=== PATIENT | male | born 1985 | race Caucasian/White ===

== ENCOUNTER 2021-01-09 10:21 | Emergency (ER) | payer OTHER, SELFPAY ==
[2021-01-09 10:29] VITALS: BP 120/80; PULSE 71; RESP 16; TEMP 36.9; O2SAT 99
--- NOTE | 2021-01-09 11:00 | ED.SKABFB ---
HPI - Skin/Abscess/Foreign Bdy General Chief complaint: Skin/Abscess/Foreign Body Stated complaint: pos ingrown hair Source: patient and RN notes reviewed Limitations: no limitations History of Present Illness HPI narrative: The patient, tattoo professional, presents with skin eruption. Patient states he had MRSA in the past, and he shaves his groin. He now has 1/2-week history of left proximal thigh skin eruption, well lateral to the shaved areas. Complains of mild quarter sized redness without fever, other rash, discharge without abscess/induration-- but there is faint developing redness. Symptoms are mild, unrelieved with squeezing/scratching it. Related Data Allergies Allergy/AdvReac Type Severity Reaction Status Date / Time No Known Allergies Allergy Verified 01/09/21 10:32 Review of Systems Review of Systems: General/Constitutional: No weight loss,fever Eyes: N0: Redness,discharge Ears/Nose/Throat: No: Epistaxis,ear discharge Respiratory: Denies: Hemoptysis Gastrointestinal: No Vomiting, Bleeding-rectal Skin: No Lumps, REPORTS eruption Neurologic: No Focal Weakness,Sz Hematologic: Denies: Petechiae/Purpura Psychiatric: No: Suicida ideationl All Other Systems: Reviewed and Negative PMFSH Comments At time of signature, agree with nursing past medical, surgical, social and family history. There is no relevant family history pertinent to the presenting complaint Exam Narrative: General Appearance: Well nourished, conjunctiva clear Ear: External ear normal Nose: Normal nose, Nare clear Mouth/Throat: Normal appearing, Supple Respiratory: Airway patent, No respiratory distress Musculoskeletal: Moves all extremities, Non tender Skin: Warm, Dry small, isolated macular papular skin eruption of left gluteal crease, with very faint surrounding redness Neurological: A&O x3, Normal affect Course Vital Signs Vital signs: Vital Signs Temperature 98.5 F 01/09/21 10: Pulse Rate 71 01/09/21 10:29 Respiratory Rate 16 01/09/21 10:29 Blood Pressure 120/80 01/09/21 10:29 Pulse Oximetry 99 01/09/21 10: Temperature 98.5 F 01/09/21 10:29 Pulse Rate 71 01/09/21 10:29 Respiratory Rate 16 01/09/21 10:29 Blood Pressure 120/80 01/09/21 10:29 Pulse Oximetry 99 01/09/21 10:29 Discharge Plan Discharge Clinical Impression: Folliculitis Patient Disposition: Home, Self-Care Condition: Stable Instructions: MRSA (Methicillin-Resistant Staphylococcus Aureus) (ED), Folliculitis (ED) Additional Instructions: Take clindamycin with food, antacid and/or probiotic Stop if diarrhea occurs; keep photo log of area Prescriptions: New clindamycin HCl 300 mg capsule 300 mg PO TID Qty: 21 RF: 0 mupirocin 2 % ointment 1 applic TOPICAL TID Qty: 30 RF: 0 Follow-up/Referrals: UNKNOWN,DOCTOR [Primary Care Provider] -
== END 2021-01-09 11:11 | disposition home or self-care (01) ==
PROVIDERS: Emergency Provider Emergency Medicine
DX: L73.9 Follicular disorder, unspecified (principal)
CPT/HCPCS: 99213; G0463

== ENCOUNTER 2022-10-19 08:57 | Emergency (ER) | payer OTHER, SELFPAY ==
[2022-10-19 09:10] VITALS: BP 124/85; PULSE 62; RESP 16; TEMP 36.3; O2SAT 99
--- NOTE | 2022-10-19 09:21 | ED.URI ---
HPI - URI/Sore Throat General Chief Complaint: Upper Respiratory Infection Stated Complaint: NAUSEA/SORE THROAT History of Present Illness HPI Narrative: 37-year-old male presented for complaint of sore throat, headache, nausea, and generally feeling unwell. Onset today. States his children tested positive for strep yesterday. He denies, shortness again, fevers or chills. He is taking ibuprofen and antihistamines for symptoms. Related Data Allergies Allergy/AdvReac Type Severity Reaction Status Date / Time No Known Allergies Allergy Verified 10/19/22 09:05 Review of Systems Review of Systems: CONSTITUTIONAL: Denies body aches, fever, chills, or sweats. EYES: Denies visual changes, redness, or discharge. ENT: Reports sore throat, rhinorrhea, denies eye discharge or otalgia. CARDIOVASCULAR: Denies chest pain, palpitations, or edema. RESPIRATORY: Denies dyspnea. GASTROINTESTINAL: Denies abdominal pain, nausea, vomiting, or diarrhea. SKIN: Denies rash, itching, or wounds. MUSCULOSKELETAL: Denies back pain, joint pain, or myalgia. NEUROLOGIC: Reports headache PMFSH Past Medical History Medical History (Updated 10/19/22 @ 09:28 by Melida Lamb APRN) No pertinent past medical history Social History Social History (Updated 10/19/22 @ 09:28 by Melida Lamb APRN) Substance use type: marijuana Exam Narrative: GENERAL: well-appearing, no acute distress. EYES: conjunctivae clear ENT: Mucous membranes moist. TM pearly turner with normal light reflex bilaterally; no tragal tenderness. Oropharynx erythematous without lesions. Tonsils enlarged 1+ without exudate. Hoarse voice, No drooling, no trismus, uvula midline. No tripod positioning, hot potato voice, or soft palate swelling. NECK: Supple. No lymphadenopathy CHEST: Clear to auscultation, breath sounds equal. No respiratory distress, speaks in full sentences. HEART: Regular rate and rhythm. No murmur heard. SKIN: Warm, dry, no rash. NEURO: Alert and oriented x3. Course Course Emergency Course: Patient is aware of diagnosis, understands and agrees to treatment plan. Anticipatory guidance given. Patient agrees to follow-up as directed and is aware of reasons to seek care at the emergency department. Portions of this record may have been created with voice recognition software Level of Care: Express Care Visit Vital Signs Vital signs: Vital Signs Temperature 97.3 F L 10/19/22 09:10 Pulse Rate 62 10/19/22 09:10 Respiratory Rate 16 10/19/22 09:10 Blood Pressure 124/85 10/19/22 09:10 Pulse Oximetry 99 10/19/22 09:10 Temperature 97.3 F L 10/19/22 09:10 Pulse Rate 62 10/19/22 09:10 Respiratory Rate 16 10/19/22 09:10 Blood Pressure 124/85 10/19/22 09:10 Pulse Oximetry 99 10/19/22 09:10 MDM - URI/Sore Throat MDM Narrative Medical decision making narrative: Neg strep result reviewed with pt. Advise supportive treatments. Patient is appropriate for outpatient treatment and follow-up. Differential Diagnosis Differential diagnosis: Likely upper respiratory infection, viral infection and pharyngitis Lab Data Labs: Strep Screen Presumptive Negative *(Reference Range: Negative)* Discharge Plan Discharge Clinical Impression: Pharyngitis Patient Disposition: Home, Self-Care Condition: Stable Instructions: Antibiotic Form, Strep Throat (ED) Additional Instructions: - Take the antibiotic as directed. Fever and sore throat typically resolve within one to three days. Most patients can return to work after 12 to 24 hours of antibiotic therapy, provided you are fever free and otherwise well. -Eat and drink things that are easy to swallow, like soft foods, cool liquids, tea with honey, or popsicles . -Salt water gargles and/or may use topical anesthetic ( Chloraseptic spray) or lozenges to relieve dryness or throat pain -Alternate T
== END 2022-10-19 09:28 | disposition home or self-care (01) ==
PROVIDERS: Emergency Provider Nurse Practitioner Family
DX: J02.9 Acute pharyngitis, unspecified (principal)
CPT/HCPCS: 87081; 87880; 99213; G0463